=== PATIENT | male | born 1960 | race Caucasian/White ===

== ENCOUNTER → 2018-01-02 | Outpatient (CLI) | payer BC, OTHER ==
[~2018-01-02] MED LIST: AMOX-559 PO; AUG875 PO; ESC10 PO; FERR27TA3 PO; LIDOCAINE MPF 1% 5 ML VIAL ONE; LOR5 PO; NO ROUTINE MEDS; NS(*) 0.9% 10 ML VIAL 10 ML ONE; PER PO; RAN150 PO; WARF3TAB36 PO; [UNRECOGNIZED DRUG - CODE] IV
--- NOTE | 2018-01-02 13:09 | RADIOLOGY IMAGING REPORT ---
FACILITY: [facility] PATIENT NAME: Rene Eckert : 1960 MR: [id number] V: [id number] EXAM DATE: ORDERING PHYSICIAN: RUBI STAFFORD TECHNOLOGIST: Location: [facility] - [place] Patient: Rene Eckert : 1960 Visit/Account:[id number] Date of Sevice: 01/02/2018 PICC LINE PLACEMENT, PICC LINE INSERTION Indication: 57-year-old male with right knee infection requiring long-term antibiotics and a left PI CC catheter. Procedure: Following an official timeout documenting the patient's name and laterality of the procedu re, the patient was placed supine on the angiography table. Ultrasound was used to evaluate a vein for access. Ultrasound was used to confirm patency of the left basilic vein and an image was saved to the PACS system. Ultrasound imaging confirmed patency of the vein. Skin overlying this vein was prepped and draped in the usual sterile fashion. Following local anesthesia to the skin and subcutaneous tissues a 21-gauge needle was directed into the vein using u ltrasound guidance. Upon entry the vein was cannulated with a 0.018 inch guidewire. Following this th e needle exchanged over the guidewire for 5 [place] peel-away sheath. Through the peel-away sheath and over the guidewire a 5 [place] power PICC catheter was fluoroscopically directed to the cavoatrial ju nction. A final radiograph was taken to confirm position. Ports were flushed with heparinized saline and a sterile dressing was applied. AK: 3 mGy DAP: 40 uGym2 IMPRESSION: Ultrasound and fluoroscopic guided placement of a 5 [place] single lumen 40 cm power PICC catheter with its tip at the cavoatrial junction. Report Dictated By: Darrell Arora MD at 01/02/2018 1:05 PM Report E-Signed By: Darrell Arora MD at 01/02/2018 1:06 PM NEHAN:MARAH
--- NOTE | 2018-01-02 13:10 | RADIOLOGY IMAGING REPORT ---
FACILITY: [facility] - [place] PATIENT NAME: Rene Eckert : 1960 MR: [id number] V: [id number] EXAM DATE: ORDERING PHYSICIAN: RUBI STAFFORD TECHNOLOGIST: Location: [facility] - [place] Patient: Rene Eckert : 1960 Visit/Account:[id number] Date of Sevice: 01/02/2018 PICC LINE PLACEMENT, PICC LINE INSERTION Indication: 57-year-old male with right knee infection requiring long-term antibiotics and a left PI CC catheter. Procedure: Following an official timeout documenting the patient's name and laterality of the procedu re, the patient was placed supine on the angiography table. Ultrasound was used to evaluate a vein for access. Ultrasound was used to confirm patency of the left basilic vein and an image was saved to the PACS system. Ultrasound imaging confirmed patency of the vein. Skin overlying this vein was prepped and draped in the usual sterile fashion. Following local anesthesia to the skin and subcutaneous tissues a 21-gauge needle was directed into the vein using u ltrasound guidance. Upon entry the vein was cannulated with a 0.018 inch guidewire. Following this th e needle exchanged over the guidewire for 5 [place] peel-away sheath. Through the peel-away sheath and over the guidewire a 5 [place] power PICC catheter was fluoroscopically directed to the cavoatrial ju nction. A final radiograph was taken to confirm position. Ports were flushed with heparinized saline and a sterile dressing was applied. AK: 3 mGy DAP: 40 uGym2 IMPRESSION: Ultrasound and fluoroscopic guided placement of a 5 [place]in[place] single lumen 40 cm power PICC catheter with its tip at the cavoatrial junction. Report Dictated By: Darrell Arora MD at 01/02/2018 1:05 PM Report E-Signed By: Darrell Arora MD at 01/02/2018 1:06 PM NEHAN:MARAH
== END ==
LOC: RAD 09:17
PROVIDERS: ATTEND Internal Medicine Infectious Disease
DX: T84.53XD Infection and inflammatory reaction due to internal right knee prosthesis, subsequent encounter (principal); Z95.828 Presence of other vascular implants and grafts
CPT/HCPCS: 36569; 76937; C1751; J2001

== ENCOUNTER 2018-02-20 09:00 | Outpatient (RCR) | payer OTHER ==
[2018-01-02 13:15] VITALS: BP 132/91
[2018-01-02] MEDS: NS(*) 0.9% 100 ML BAG 100 ML IVPB PRN (13:20)
[2018-01-03 13:25] VITALS: BP 118/87
[2018-01-07 13:22] LABS: PLATELET COUNT, AUTOMATED 424 K/uL (150-450)
[2018-01-14 08:37] VITALS: BP 128/91
[2018-01-14] MEDS: NS(*) 0.9% 100 ML BAG 100 ML IVPB PRN (08:40)
[2018-01-14 08:41] LABS: PLATELET COUNT, AUTOMATED 448 K/uL (150-450)
[2018-01-21 08:38] VITALS: BP 126/86
[2018-01-21 09:04] LABS: PLATELET COUNT, AUTOMATED 393 K/uL (150-450)
[2018-01-30 09:03] VITALS: BP 149/96
[2018-01-30 09:24] LABS: PLATELET COUNT, AUTOMATED 379 K/uL (150-450)
[2018-02-04 09:17] LABS: PLATELET COUNT, AUTOMATED 464 K/uL (150-450)
[2018-02-04 09:24] VITALS: BP 135/92
[2018-02-11 10:48] LABS: PLATELET COUNT, AUTOMATED 346 K/uL (150-450)
[2018-02-18 08:46] VITALS: BP 125/83
[2018-02-18 08:56] LABS: PLATELET COUNT, AUTOMATED 400 K/uL (150-450)
[~2018-02-20 09:00] MED LIST changes: +ALTEPLASE RECOMB 2 MG VIAL IVP PRN; +DAPTOMYCIN IVPB ONE; +DEXTROSE 5%(*) 100 ML BAG 100 ML IVPB PRN; -LIDOCAINE MPF 1% 5 ML VIAL ONE; +NS 0.9% IVPB ONE; -NS(*) 0.9% 10 ML VIAL 10 ML ONE; +NS(*) 0.9% 500 ML BAG 500 ML IV PRN; +WATER FOR INJ,STERILE 20 ML IVP PRN; +cefTRIAXone 2 GM VIAL IVP PRN
== END 2018-02-27 09:16 | disposition home or self-care (01) ==
LOC: SPU 09:00
PROVIDERS: ATTEND Internal Medicine Infectious Disease
DX: T84.53XD Infection and inflammatory reaction due to internal right knee prosthesis, subsequent encounter (principal); A49.01 Methicillin susceptible Staphylococcus aureus infection, unspecified site
CPT/HCPCS: 36592; 82550; 85025; 86140; 96365; 96374; J0696; J0878; J7050; 82040; 82247; 82310; 82374; 82435; 82565; 82947; 84075; 84132; 84155; 84295; 84450; 84460; 84520